=== PATIENT | male | born 1980 | race Caucasian/White ===

== ENCOUNTER 2023-11-07 17:15 | Emergency (ER) | payer BC, SELFPAY ==
[2023-11-07 17:19] VITALS: BP 144/99
--- NOTE | 2023-11-07 17:26 | ED.GENMED ---
History of Present Illness
General
Chief Complaint: Head Injury
Time Seen by Provider: 11/07/23 17:25
Travel History
Have you had any contact with someone who has COVID-19?: No
Do you have any symptoms of coronavirus? Fever > 100 degrees, chills, cough, shortness of breath, sore throat, loss of taste or smell, muscle aches, or headache?: No
History of Present Illness
History of Present Illness:
43-year-old male presents the emergency department for evaluation of a minor head injury. He tripped and struck his head on a step. There is a laceration to the vertex of the scalp. He is on anticoagulants. Denies any headache or vision changes.
Denies any neck pain or extremity paresthesias
Review of Systems
Review of Systems
Allergies reviewed?: Yes
All Other Systems: ROS reviewed and negative except as documented in HPI and ROS
Phy Exam
Physical Exam
Physical Exam:
GEN: Well appearing, NAD, WDWN
HEENT: Oral mucosa moist, no scleral icterus. 4 cm ragged laceration to the midline vertex of the scalp with associated abrasion, mild active bleeding, no scalp hematoma
Cardiac: Regular rate
Lung: No respiratory distress, no tachypnea
MSK: No gross deformity or injuries
Skin: Good color, no pallor or jaundice, no rashes
Neuro: AO x3, moves all extremities freely
Psych: Calm, cooperative
Course
Vital Signs
Initial and Last Documented VS:
Initial Vital Signs
Temp Pulse Resp BP Pulse Ox
97.3 F 94 16 144/99 98
11/07/23 17:19 11/07/23 17:19 11/07/23 17:19 11/07/23 17:19 11/07/23 17:19
Last Documented Vital Signs
Temp Pulse Resp BP Pulse Ox
97.3 F 94 16 144/99 98
11/07/23 17:19 11/07/23 17:19 11/07/23 17:19 11/07/23 17:19 11/07/23 17:19
MDM/Problems Addressed
MDM/Problems Addressed:
Laceration was cleansed copiously with normal saline and Shur-Clens, inspection reveals no evidence for foreign body; and repaired with 5 external maddie. Has no clinical signs of intracranial hemorrhage or skull fracture thus no imaging is
necessary at this time. Discussed supportive care and wound care guidelines
*Critical Care Note
Total Time (30-74mins, 75-104mins- exclusive of procedures): Not Applicable
ED Attending Note
-
Portions of this chart may have been created with voice recognition software.� Occasional wrong word or��sound alike� substitutions may have occurred due to the inherent limitations of voice recognition software.
Discharge Plan
Departure
Patient Disposition: Home (Routine Discharge)
Date of Disposition: 11/07/23
Time of Disposition: 17:42
Patient with high blood pressure during this ER visit?: No
Discharge Problem:
Laceration of scalp
Instructions: Laceration Repair With Maddie (DC)
Prescriptions:
No Action
No Current Medications
0
Activity Restrictions/Additional Instructions:
Keep dry for 24 hours
Wash wound daily thereafter
Staple removal in 5-7 days at primary doctor or urgent care
Interventions
Interventions:
*Risk Screen - Suicide Last Done: 11/07/23 17:57
*General Assessment Last Done: 11/07/23 17:57
*Neglect/Abuse Screening Last Done: 11/07/23 17:57
ED- Fall Risk Assessment Last Done: 11/07/23 17:57
*ED COVID-19 Vaccine History Last Done: 11/07/23 17:19
*Nursing Disposition Last Done: 11/07/23 18:00
ED- Neurological Assessment Last Done: 11/07/23 17:57
ED-Skin Assessment Last Done: 11/07/23 17:57
Discharge Date and Time
Discharge Date/Time: 11/07/23 18:00
[2023-11-07 17:57] VITALS: BMI 25.9
== END 2023-11-07 18:00 | disposition home or self-care (01) ==
LOC: EMR 17:15
PROVIDERS: EMERGENCY PHYSICIAN Emergency Medicine
DX: S01.01XA Laceration without foreign body of scalp, initial encounter (principal); W01.0XXA Fall on same level from slipping, tripping and stumbling without subsequent striking against object, initial encounter
CPT/HCPCS: 99282; 12001